=== PATIENT | female | born 1990 | race Caucasian/White ===

== ENCOUNTER 2021-10-10 10:04 | Emergency (ER) | payer BC, OTHER ==
[~2021-10-10] VITALS: Ht 162.6 cm; Wt 54.4 kg
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
--- NOTE | 2021-10-10 10:13 | NUR ---
DR PADGETT AT THE BEDSIDE
--- NOTE | 2021-10-10 10:38 | NUR ---
LINE PULLER AT THE BEDSIDE
--- NOTE | 2021-10-10 10:52 | NUR ---
PT SIGNED WAIVER TO RECIVED X RAY AND CT. PT TAKEN TO CT VIA RFORT DODGE.
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
[2021-10-10] MEDS ORDERED: KETOROLAC TROMETHAMINE INJ 30 MG/ML VIAL IM ONE (11:30)
[2021-10-10] MEDS ORDERED: IBUPROFEN 600 MG TABLET PO ONE (11:30)
[2021-10-10] MEDS ORDERED: CYCL5TAB PO (11:34)
[2021-10-10] MEDS ORDERED: IBUP-1955 PO (11:34)
[2021-10-10] MEDS ORDERED: IBUPROFEN 600 MG TABLET ONE (11:35)
--- NOTE | 2021-10-10 11:39 | NUR ---
Patient discharged to home in stable condition. Written and verbal after care instructions given. Patient verbalizes understanding of instruction.
[2021-10-10 11:41] VITALS: BP 107/67
== END 2021-10-10 11:41 | disposition home or self-care (01) ==
LOC: ER 10:07
DX: S16.1XXA Strain of muscle, fascia and tendon at neck level, initial encounter (principal); S29.012A Strain of muscle and tendon of back wall of thorax, initial encounter; V49.49XA Driver injured in collision with other motor vehicles in traffic accident, initial encounter; Y93.89 Activity, other specified; Y92.413 State road as the place of occurrence of the external cause; Y99.8 Other external cause status
CPT/HCPCS: 71045-TC; 72125-TC; 73030-TC